=== PATIENT | male | born 1970 | race African-American/Black ===

== ENCOUNTER 2020-04-12 18:23 | Inpatient (IN) ==
[2020-04-12 19:02] LABS: Basophils # 0.1 10*3/uL (0.0-0.2); Basophils % 0.5 % (0.0-0.8); Eosinophils # 0.2 10*3/uL (0.0-0.87); Eosinophils % 2.5 % (0.00-10.9); Hematocrit 43.6 VOL% (42.0-52.0); Hemoglobin 14.8 GM/DL (14.0-18.0); Immature Granulocytes % 0.1 %; Immature Granulocytes Absolute 0.01 #; Lymphocytes # 4.4 10*3/uL (1.4-4.0); Lymphocytes % 48.2 % (21.2-54.2); Mean Corpuscular HGB Conc 33.9 GM/DL (32-36); Mean Platelet Volume 10.8 FL (9.6-12.0); Monocytes % 10.4 % (1.7-12.7); Neutrophils % 38.3 % (38.7-73.9); Platelet Count 240 T/CUMM (130-400); Red Blood Count 4.54 MC/CUMM (3.8-5.5); Red Cell Distribution Width 14.4 % (9.3-17.3); White Blood Count 9.2 T/CUMM (4-12)
[2020-04-12] MEDS ORDERED: DILTIAZEM 50 MG/10 ML VIAL IV STA (19:07)
[2020-04-12] MEDS ORDERED: SODIUM CHLORIDE 0.9% 1,000 ML IV STA (19:08)
[2020-04-12 19:10] LABS: INR 1.3; Partial Thromboplastin Time 23.1 SECS (23.9-33.8)
[2020-04-12 19:29] LABS: Albumin 2.7 G/DL (3.4-5.0); Bilirubin,Total 0.6 MG/DL (0.2-1.0); Calcium 8.5 MG/DL (8.5-10.1); Total Protein 5.9 G/DL (6.4-8.3)
[2020-04-12 19:45] LABS: Eosinophils 1 % (0-10); Lymphocytes 51 % (20-55); Segmented Neutrophils 41 % (50-85); Total Cells Counted 100
[2020-04-12 19:46] LABS: Platelet Estimate Normal
[2020-04-12] MEDS ORDERED: FUROSEMIDE 40 MG/4 ML VIAL IV STA (20:23)
[2020-04-12] MEDS ORDERED: ENOXAPARIN 30 MG/0.3 ML SYRINGE SUBCUT STA (20:42)
[2020-04-12 21:09] LABS: Bilirubin,Urine Negative (Negative); Blood, Urine Small mg/dL (Negative); Glucose,Urine (UA) Negative (Negative); Ketones,Urine Negative (Negative); Mucus,Urine Occasional /LPF (Occasional); Nitrite,Urine Negative (Negative); Protein,Urine Negative; RBC,Urine 2 /HPF (0-4); Urine Appearance CLEAR (Clear); Urine Color Yellow (Yellow); Urine Specific Gravity 1.026 (1.001-1.035); WBC,Urine 1 /HPF (0-6)
[2020-04-12 21:13] LABS: Barbiturates Screen,Urine Negative (Negative); Benzodiazepines Screen,Urine Negative (Negative); Cannabinoid Screen,Urine Negative (Negative); Opiate Screen,Urine Negative (Negative); Phencyclidine Screen,Urine Negative (Negative)
[2020-04-12] MEDS ORDERED: ACETAMINOPHEN 325 MG TABLET PO PRN (21:22)
[2020-04-12] MEDS ORDERED: GLUCAGON 1 MG VIAL IM PRN (21:22)
[2020-04-12] MEDS ORDERED: DEXTROSE 50% 25 GM/50 ML VIAL IV PRN (21:22)
[2020-04-12] MEDS ORDERED: ONDANSETRON 4 MG/2 ML VIAL IV PRN (21:22)
[2020-04-12] MEDS ORDERED: ASPIRIN CHEW 81 MG TABLET PO STA (21:27)
[2020-04-12] MEDS ORDERED: DEXTROSE 50% 25 GM/50 ML SYRINGE IV PRN (21:35)
[2020-04-12] MEDS ORDERED: NITROGLYCERIN SL 0.4 MG TABLET SL PRN (21:41)
[2020-04-12] MEDS ORDERED: ENOXAPARIN 100 MG/ML SYRINGE SUBCUT ONE (21:45)
[2020-04-12] MEDS: METOPROLOL TARTRATE 25 MG TABLET PO SCH (21:52)
[2020-04-12 22:51] LABS: Risk Ratio 3.19; VLDL CHOLESTEROL 9.8 MG/DL
[2020-04-13 02:30] LABS: Albumin 2.3 G/DL (3.4-5.0); Bilirubin,Direct 0.26 MG/DL (0.0-0.20); Bilirubin,Indirect 0.3 MG/DL (0.0-1.0); Bilirubin,Total 0.6 MG/DL (0.2-1.0); Calcium 7.9 MG/DL (8.5-10.1); Osmolality,Calculated 282.1 MOS/KG (273-304); Total Protein 5.5 G/DL (6.4-8.3)
[2020-04-13] MEDS ORDERED: PANTOPRAZOLE 40 MG TABLET PO SCH (09:00)
[2020-04-13] MEDS: METOPROLOL TARTRATE 25 MG TABLET PO SCH (09:06)
[2020-04-13] MEDS: ASPIRIN EC 81 MG TABLET PO SCH (09:06)
[2020-04-13] MEDS: FUROSEMIDE 40 MG/4 ML VIAL IV SCH ×2 (09:08→16:27)
[2020-04-13] MEDS ORDERED: POTASSIUM CHLORIDE 20 MEQ TABLET PO ONE (10:31)
[2020-04-13] MEDS ORDERED: DIGOXIN 0.5 MG/2 ML AMP IV ONE (10:37)
[2020-04-13] MEDS: carvediloL 6.25 MG TABLET PO SCH ×2 (11:06→21:47)
[2020-04-13] MEDS: ENOXAPARIN 120 MG/0.8 ML SYRINGE SUBCUT SCH ×2 (11:06→23:07)
[2020-04-13] MEDS ORDERED: ENOXAPARIN 40 MG/0.4 ML SYRINGE SUBCUT SCH (21:00)
[2020-04-14 05:50] LABS: Calcium 8.3 MG/DL (8.5-10.1); Osmolality,Calculated 278.4 MOS/KG (273-304)
[2020-04-14] MEDS: DIGOXIN 0.5 MG/2 ML AMP IV SCH ×3 (08:49→21:20)
[2020-04-14] MEDS: FUROSEMIDE 40 MG TABLET PO SCH (08:50)
[2020-04-14] MEDS: ASPIRIN EC 81 MG TABLET PO SCH (08:50)
[2020-04-14] MEDS: MULTIVITAMIN (CENTRUM) TABLET PO SCH (08:50)
[2020-04-14] MEDS: carvediloL 6.25 MG TABLET PO SCH ×2 (08:50→21:20)
[2020-04-14 10:27] LABS: Bilirubin,Urine Negative (Negative); Blood, Urine Negative (Negative); Glucose,Urine (UA) Negative (Negative); Ketones,Urine Negative (Negative); Mucus,Urine Occasional /LPF (Occasional); Nitrite,Urine Negative (Negative); Protein,Urine Negative; RBC,Urine <1 /HPF (0-4); Squamous Epithelial Cell,Urine Occasional /HPF (0-10); Urine Appearance CLEAR (Clear); Urine Color Yellow (Yellow); Urine Specific Gravity 1.009 (1.001-1.035); Urine Urobilinogen < 2.0 EU/DL (0.2-1.0)
[2020-04-14] MEDS: ENOXAPARIN 120 MG/0.8 ML SYRINGE SUBCUT SCH ×2 (12:55→22:39)
[2020-04-14 13:14] LABS: Barbiturates Screen,Urine Negative (Negative); Benzodiazepines Screen,Urine Negative (Negative); Cannabinoid Screen,Urine Negative (Negative); Opiate Screen,Urine Negative (Negative); Phencyclidine Screen,Urine Negative (Negative)
[2020-04-15] MEDS: DIGOXIN 0.5 MG/2 ML AMP IV SCH (03:28)
[2020-04-15] MEDS ORDERED: DIGOXIN 0.5 MG/2 ML AMP IV SCH (03:30)
[2020-04-15 08:06] VITALS: BP 124/82
[2020-04-15] MEDS: ASPIRIN EC 81 MG TABLET PO SCH (08:59)
[2020-04-15] MEDS: MULTIVITAMIN (CENTRUM) TABLET PO SCH (08:59)
[2020-04-15] MEDS: carvediloL 6.25 MG TABLET PO SCH (08:59)
[2020-04-15] MEDS: FUROSEMIDE 40 MG TABLET PO SCH (08:59)
[2020-04-15] MEDS ORDERED: APIXABAN 5 MG TABLET PO SCH (09:00)
[2020-04-15] MEDS ORDERED: DIGOXIN 0.125 MG TABLET PO SCH (13:00)
[2020-04-16] MEDS ORDERED: POTASSIUM CHLORIDE 20 MEQ TABLET PO SCH (09:00)
== END 2020-04-15 12:23 | disposition home or self-care (01) | DRG 292 ==
LOC: N.ED 18:23 → N.EDINP 21:22 → N.TELES 04-13 03:02
PROVIDERS: ADMIT Internal Medicine; ATTEND Internal Medicine

== ENCOUNTER 2020-06-30 00:42 | Inpatient (IN) ==
[2020-06-30] MEDS ORDERED: DILTIAZEM 50 MG/10 ML VIAL IV STA (01:09)
[2020-06-30] MEDS ORDERED: ONDANSETRON 4 MG/2 ML VIAL IV STA (01:09)
[2020-06-30] MEDS ORDERED: methylPREDNISolone SOD SUC 125 MG/2 ML VIAL IV STA (01:09)
[2020-06-30] MEDS ORDERED: FUROSEMIDE 100 MG/10 ML VIAL IV STA (01:09)
[2020-06-30] MEDS ORDERED: dilTIAZem Drip 125 MG/125 ML PREMIX IV ONE (01:12)
[2020-06-30] MEDS ORDERED: dilTIAZem Drip 125 MG/125 ML PREMIX IV SCH (01:30)
[2020-06-30 01:39] LABS: Basophils % 0.4 % (0.0-0.8); Eosinophils # 0.1 10*3/uL (0.0-0.87); Eosinophils % 0.7 % (0.00-10.9); Hematocrit 40.3 VOL% (42.0-52.0); Hemoglobin 13.3 GM/DL (14.0-18.0); Immature Granulocytes % 0.2 %; Immature Granulocytes Absolute 0.02 #; Lymphocytes # 4.1 10*3/uL (1.4-4.0); Lymphocytes % 40.8 % (21.2-54.2); Mean Platelet Volume 11.2 FL (9.6-12.0); Monocytes % 12.7 % (1.7-12.7); Neutrophils % 45.2 % (38.7-73.9); Platelet Count 233 T/CUMM (130-400); Red Blood Count 4.24 MC/CUMM (3.8-5.5)
[2020-06-30 01:55] LABS: INR 1.3; PT Patient Result 13.3 SECS (9.8-11.9)
[2020-06-30 02:05] LABS: Albumin 3.3 G/DL (3.4-5.0); Bilirubin,Total 1.4 MG/DL (0.2-1.0); Osmolality,Calculated 275.5 MOS/KG (273-304)
[2020-06-30 02:25] LABS: Bacteria,Urine Occasional /HPF (Few); Bilirubin,Urine Negative (Negative); Blood, Urine Negative (Negative); Glucose,Urine (UA) Negative (Negative); Ketones,Urine Negative (Negative); Mucus,Urine Many /LPF (Occasional); Nitrite,Urine Negative (Negative); Protein,Urine Negative; RBC,Urine <1 /HPF (0-4); Urine Appearance CLEAR (Clear); Urine Color Yellow (Yellow); Urine Specific Gravity 1.006 (1.001-1.035); Urine Urobilinogen < 2.0 EU/DL (0.2-1.0); WBC,Urine <1 /HPF (0-6)
[2020-06-30] MEDS ORDERED: ENOXAPARIN 100 MG/ML SYRINGE SUBCUT STA (02:28)
[2020-06-30 02:30] LABS: Barbiturates Screen,Urine Negative (Negative); Benzodiazepines Screen,Urine Negative (Negative); Cannabinoid Screen,Urine Negative (Negative); Opiate Screen,Urine Negative (Negative); Phencyclidine Screen,Urine Negative (Negative)
[2020-06-30] MEDS ORDERED: GLUCAGON 1 MG VIAL IM PRN (03:09)
[2020-06-30] MEDS ORDERED: DEXTROSE 50% 25 GM/50 ML VIAL IV PRN (03:09)
[2020-06-30] MEDS ORDERED: hydrALAZINE 20 MG/1 ML VIAL IV PRN (03:19)
[2020-06-30] MEDS ORDERED: ACETAMINOPHEN 325 MG TABLET PO PRN (03:19)
[2020-06-30] MEDS ORDERED: NICOTINE 21 MG/24 HR PATCH TRANSDERM PRN (03:19)
[2020-06-30] MEDS ORDERED: ONDANSETRON 4 MG/2 ML VIAL IV PRN (03:19)
[2020-06-30] MEDS ORDERED: carvediloL 6.25 MG TABLET PO SCH (09:00)
[2020-06-30] MEDS: POTASSIUM CHLORIDE 20 MEQ TABLET PO SCH (10:14)
[2020-06-30] MEDS ORDERED: DIAZEPAM 5 MG TABLET PO ONE (11:09)
[2020-06-30] MEDS ORDERED: diphenhydrAMINE CAP 25 MG CAPSULE PO ONE (11:09)
[2020-06-30] MEDS: ASPIRIN EC 81 MG TABLET PO SCH (13:22)
[2020-06-30] MEDS: FUROSEMIDE 20 MG/2 ML VIAL IV SCH (13:22)
[2020-06-30] MEDS: ENOXAPARIN 100 MG/ML SYRINGE SUBCUT SCH (13:22)
[2020-06-30] MEDS: LOSARTAN 25 MG TABLET PO SCH (13:22)
[2020-06-30] MEDS: dilTIAZem INJ 125 MG in SODIUM CHLORIDE 0.9% 125 MG/100 ML BAG IV SCH (18:22)
[2020-07-01] MEDS: ENOXAPARIN 100 MG/ML SYRINGE SUBCUT SCH ×2 (01:40→15:04)
[2020-07-01] MEDS ORDERED: ENOXAPARIN 100 MG/ML SYRINGE SUBCUT SCH (03:30)
[2020-07-01 06:15] LABS: Basophils % 0.2 % (0.0-0.8); Eosinophils % 0.3 % (0.00-10.9); Hematocrit 34.8 VOL% (42.0-52.0); Hemoglobin 11.9 GM/DL (14.0-18.0); Immature Granulocytes % 0.4 %; Immature Granulocytes Absolute 0.05 #; Lymphocytes # 3.2 10*3/uL (1.4-4.0); Lymphocytes % 27.1 % (21.2-54.2); Mean Corpuscular HGB Conc 34.2 GM/DL (32-36); Mean Corpuscular Volume 93.5 FL (87-102); Mean Platelet Volume 11.5 FL (9.6-12.0); Monocytes % 13.3 % (1.7-12.7); Neutrophils % 58.7 % (38.7-73.9); Platelet Count 226 T/CUMM (130-400); Red Blood Count 3.72 MC/CUMM (3.8-5.5); Red Cell Distribution Width 14.6 % (9.3-17.3); White Blood Count 11.6 T/CUMM (4-12)
[2020-07-01 06:48] LABS: Blood Urea Nitrogen 16 MG/DL (7-18); Calcium 8.5 MG/DL (8.5-10.1); Estimated Glom Filtration Rate 118 ML/MIN; Glucose 107 MG/DL (74-106); Osmolality,Calculated 277.5 MOS/KG (273-304)
[2020-07-01] MEDS ORDERED: SODIUM CHLORIDE 0.45% 1,000 ML IV SCH (08:00)
[2020-07-01] MEDS: FUROSEMIDE 20 MG/2 ML VIAL IV SCH (08:23)
[2020-07-01] MEDS: LOSARTAN 25 MG TABLET PO SCH (08:23)
[2020-07-01] MEDS: ASPIRIN EC 81 MG TABLET PO SCH (08:23)
[2020-07-01] MEDS ORDERED: diphenhydrAMINE CAP 25 MG CAPSULE PO ONE ×2 (15:00→15:15)
[2020-07-01] MEDS ORDERED: DIAZEPAM 5 MG TABLET PO ONE (15:00)
[2020-07-01] MEDS ORDERED: LIDOCAINE 1% 20 ML VIAL ONE (15:16)
[2020-07-01] MEDS ORDERED: HEPARIN/NACL 0.9% 2 UNITS/ML 1,500 ML IV ONE (15:16)
[2020-07-01] MEDS ORDERED: MIDAZOLAM 2 MG/2 ML VIAL ONE (16:42)
[2020-07-01] MEDS ORDERED: fentaNYL 100 MCG/2 ML VIAL ONE (16:42)
[2020-07-01] MEDS: dilTIAZem INJ 125 MG in SODIUM CHLORIDE 0.9% 125 MG/100 ML BAG IV SCH (17:11)
[2020-07-02] MEDS: ENOXAPARIN 100 MG/ML SYRINGE SUBCUT SCH (00:48)
[2020-07-02 00:56] VITALS: BP 98/62
[2020-07-02] MEDS: dilTIAZem INJ 125 MG in SODIUM CHLORIDE 0.9% 125 MG/100 ML BAG IV SCH (01:36)
[2020-07-02 05:41] LABS: Basophils % 0.4 % (0.0-0.8); Eosinophils # 0.1 10*3/uL (0.0-0.87); Eosinophils % 0.8 % (0.00-10.9); Hematocrit 37.5 VOL% (42.0-52.0); Hemoglobin 12.6 GM/DL (14.0-18.0); Immature Granulocytes % 0.4 %; Immature Granulocytes Absolute 0.04 #; Lymphocytes # 3.4 10*3/uL (1.4-4.0); Lymphocytes % 34.3 % (21.2-54.2); Mean Corpuscular HGB Conc 33.6 GM/DL (32-36); Mean Corpuscular Volume 93.8 FL (87-102); Mean Platelet Volume 11.6 FL (9.6-12.0); Monocytes % 12.6 % (1.7-12.7); Neutrophils % 51.5 % (38.7-73.9); Platelet Count 220 T/CUMM (130-400); Red Cell Distribution Width 14.8 % (9.3-17.3)
[2020-07-02 06:31] LABS: Blood Urea Nitrogen 15 MG/DL (7-18); Calcium 8.1 MG/DL (8.5-10.1); Estimated Glom Filtration Rate 118 ML/MIN; Glucose 123 MG/DL (74-106); Osmolality,Calculated 276.7 MOS/KG (273-304)
[2020-07-02] MEDS: LOSARTAN 25 MG TABLET PO SCH (09:08)
[2020-07-02] MEDS: POTASSIUM CHLORIDE 20 MEQ TABLET PO SCH (09:09)
[2020-07-02] MEDS: ASPIRIN EC 81 MG TABLET PO SCH (09:09)
[2020-07-02] MEDS: FUROSEMIDE 20 MG/2 ML VIAL IV SCH (09:09)
[2020-07-02] MEDS ORDERED: DILTIAZEM CD 120 MG CAPSULE PO SCH (09:30)
[2020-07-02] MEDS ORDERED: carvediloL 6.25 MG TABLET PO SCH (13:07)
[2020-07-02] MEDS ORDERED: APIXABAN 5 MG TABLET PO SCH (21:00)
== END 2020-07-02 19:33 | disposition home or self-care (01) | DRG 280 ==
LOC: N.ED 00:42 → N.EDINP 03:19 → N.TELES 03:58
PROVIDERS: ADMIT Emergency Medicine; ATTEND Emergency Medicine